=== PATIENT | male | born 1940 | race Asian ===

== ENCOUNTER 2021-06-19 22:18 | Emergency (ER) | payer OTHER ==
[~2021-06-19] VITALS: Ht 177.8 cm; Wt 68.0 kg
[2021-06-19 22:33] VITALS: BP_SYST 164
--- NOTE | 2021-06-19 22:33 | NUR ---
Patient brought in by lawyer criminal in handcuffs, for medical clearance before booking.
[2021-06-19] MEDS ORDERED: METF-379 PO (22:40)
[2021-06-19] MEDS ORDERED: LIP20 PO (22:40)
[2021-06-19 23:03] VITALS: BP_SYST 164
--- NOTE | 2021-06-19 23:03 | NUR ---
Patient medically cleared by Dr Shay, was given written and verbal discharge instructions by Dr Shay and verbalizes understanding. ER MD discussed with patient the results and treatment provided. Patient in stable condition. No Rx given. Patient educated on pain management and to follow up with PMD. Pain Scale 0/10. Opportunity for questions provided and answered by Dr Shay.
== END 2021-06-19 23:03 ==
LOC: SED 22:18
DX: Z02.89 Encounter for other administrative examinations (principal); I10 Essential (primary) hypertension; E11.9 Type 2 diabetes mellitus without complications; Z79.899 Other long term (current) drug therapy
CPT/HCPCS: 99283